=== PATIENT | female | born 1960 | race African-American/Black ===

== ENCOUNTER 2021-06-12 07:32 | Observation (INO) | payer OTHER ==
[2021-06-12 07:44] VITALS: TEMP 97.3; BMI 34.0
[2021-06-12] MEDS ORDERED: DIPHTH,PERTUSS(ACELL),TET 0.5 ML DISP.SYRIN IM ONE ×3 (08:02→08:35)
[2021-06-12 08:30] LABS: BASO % 0.6 % (0-2.0); EOS % 0.9 % (0-4.5); HEMATOCRIT 42.5 % (32.4-45.2); LYMPH % 26.3 % (8-40); MCHC 32.8 g/dl (32.0-36.0); MEAN CELL VOLUME 72.9 fl (80-96); MEAN PLT VOLUME 8.7 fl (7.5-11.1); MONO % 7.7 % (3.8-10.2); NEUT % 64.5 % (42.8-82.8); PLATELET COUNT 196 10^3/uL (134-434); RBC 5.83 M/mm3 (3.60-5.2); RDW 15.3 % (11.6-15.6); WHITE BLOOD COUNT 5.5 K/mm3 (4.0-10.0)
[2021-06-12 08:53] LABS: CALCIUM 8.9 mg/dL (8.5-10.1)
[2021-06-12 08:54] LABS: ALBUMIN 3.5 g/dl (3.4-5.0); BLOOD UREA NITROGEN 17.3 mg/dL (7-18)
[2021-06-12 08:57] LABS: CREATININE 1.1 mg/dL (0.55-1.3)
[2021-06-12 08:59] LABS: BILIRUBIN,TOTAL 0.4 mg/dL (0.2-1); TOT PROT 7.3 g/dl (6.4-8.2)
[2021-06-12 11:41] LABS: CALCIUM 8.9 mg/dL (8.5-10.1)
[2021-06-12 11:42] LABS: BLOOD UREA NITROGEN 17.7 mg/dL (7-18)
[2021-06-12] MEDS ORDERED: SODIUM CHLORIDE 1,000 ML IV STA (11:43)
[2021-06-12 15:39] VITALS: BP 160/88; PULSE 75
== END 2021-06-12 16:00 | disposition home or self-care (01) ==
LOC: JER 07:32 → JERBED 10:25
PROVIDERS: ADMIT Internal Medicine; ATTEND Internal Medicine
PROC: 3E0234Z Introduction of Serum, Toxoid and Vaccine into Muscle, Percutaneous Approach (ICD-10-PCS; principal; 2021-06-12)
PROC: 3E0337Z Introduction of Electrolytic and Water Balance Substance into Peripheral Vein, Percutaneous Approach (ICD-10-PCS; 2021-06-12)
PROC: 0HQ0XZZ Repair Scalp Skin, External Approach (ICD-10-PCS; 2021-06-12)
DX: I95.1 Orthostatic hypotension (principal); S01.01XA Laceration without foreign body of scalp, initial encounter; W18.39XA Other fall on same level, initial encounter; Y93.89 Activity, other specified; Y92.89 Other specified places as the place of occurrence of the external cause; R09.89 Other specified symptoms and signs involving the circulatory and respiratory systems; F17.210 Nicotine dependence, cigarettes, uncomplicated; E66.8 Other obesity; Z68.34 Body mass index [BMI] 34.0-34.9, adult; Z29.9 Encounter for prophylactic measures, unspecified
CPT/HCPCS: 36415; 70450-TC; 72125-TC; 80048; 80053; 82550; 82962; 84484; 85025; 87804; 90715; 93005; 93010; 99285-25; C9803; G0378; U0003; U0005